=== PATIENT | male | born 1960 | race African-American/Black ===

== ENCOUNTER 2017-01-08 09:21 | Emergency (ER) ==
[2017-01-08 09:26] VITALS: BP 147/91; TEMP 97.9; BMI 28.0
--- NOTE | 2017-01-08 09:57 | ED.PDOC ---
General ED Provider: Dr. CINDY CAMPBELL Chief Complaint: Respiratory Complaint Stated Complaint: Burning pain in anterior lower central chest x 1 month. No nausea/vomitting, no weakness, no diaphoresis, no radiation of pain. Time Seen by Physician: 09:50 Mode of Arrival: Walk-In Information Source: Patient Exam Limitations: No limitations Primary Care Provider: ANGELA LUGO Nursing and Triage Documentation Reviewed and Agree: Yes GI Complaint Exam - Abdominal Pain Complaint/Exam Onset: Gradual Duration: 1 month Symptoms Are: Still present Timing: Intermittent Initial Severity: Mild Current Severity: Moderate Location of Pain: Discrete (lower central anterior chest) Character: Reports: Burning Aggravating: Reports: None Alleviating: Reports: Spontaneous resolution AAA Risk Factors: Reports: Smoking (smokes approx 04/25 PPD), Hypertension Cardiac Risk Factors: Reports: DM, Hypertension, Smoking Testicular Torsion Risk Factors: Reports: None Surgical Obstruction Risk Factors: Reports: None Related Surgical History: Reports: None Abdominal Findings: Present: None Differential Diagnoses: AMI, Gastroenteritis, Other (reflux esophagitis) Quality Indicators for AMI: EKG in 10min. Quality Indicators for Cardiac Chest Pain: EKG in 10min. Quality Indicator For Non-Traumatic Chest Pain/Syncope: EKG Performed Review of Systems - Review Of Systems Constitutional: Reports: No symptoms Eyes: Reports: No symptoms Ears, Nose, Mouth, Throat: Reports: No symptoms Respiratory: Reports: No symptoms Cardiac: Reports: Chest pain GI: Reports: No symptoms : Reports: No symptoms Musculoskeletal: Reports: No symptoms Skin: Reports: No symptoms Neurological: Reports: No symptoms All Other Systems: Reviewed and Negative Past Medical History - Past Medical History Previously Healthy: Yes Endocrine: Reports: None Cardiovascular: Reports: Hypertension Respiratory: Reports: None Hematological: Reports: None Gastrointestinal: Reports: None Genitourinary: Reports: CKD Neuro/Psych: Reports: Anxiety, Depression Musculoskeletal: Reports: Other Cancer: Reports: Other (renal cell) - Surgical History General Surgical History: Reports: Other (kidney cancer most of right kidney was removed.) - Family History Family History: Reports: Unknown - Social History Smoking Status: Current every day smoker, Light tobacco smoker (/ PPD) Hx Substance Use: Yes (marijuana) Alcohol Screening: Occasionally Lives: Alone - Immunizations Tetanus Shot up to Date: No Influenza Vaccine within 12 Months: No Pneumococcal Vaccine up to Date: No Physical Exam - Physical Exam Appearance: Well-appearing, No pain distress, Well-nourished Ill-appearing: None Pain Distress: None ENT: Ears normal, Nose normal, Oropharynx normal Neck: Supple Respiratory: Airway patent, Breath sounds clear, Breath sounds equal, Respirations nonlabored Cardiovascular: RRR, Pulses normal, No rub, No murmur GI/: Soft, Nontender, No masses, Bowel sounds normal, No Organomegaly Musculoskeletal: Normal strength, ROM intact, No edema, No calf tenderness Skin: Warm, Dry, Normal color Neurological: Sensation intact, Motor intact, Reflexes intact, Cranial nerves intact, Alert, Oriented Psychiatric: Affect appropriate, Mood appropriate Interpretation - Radiology Interpretation Radiology Interpretation By: Radiologist Radiology Results: Negative Exam Interpreted: CXR Xray Comments: WNL - EKG Interpretation Time of EKG #1: 10:06 Rate: Normal Rhythm: Sinus Ectopy: None [place]: NL ST Segment: Normal Interpretation: WNL Re-Evaluation - Re-Evaluation Time of Re-Evaluation: 11:58 Status: Improved Vital Signs Stable: Yes Pain Level: 2/10 Appearance: NAD Lungs: Clear Skin: Warm and Dry Neuro: Alert and Oriented X3 CV: RRR Additional Comments: chest pain eased off a lot after GI cocktail, now slowly coming back Critical Care Note - Critical Care Note Total Time (mins): 0 Course - Course Hematology/Chemistry: 01/08/17 10:16 01/08/17 10:16 Orders, Labs, Meds: Lab Review 01/08/17 01/08/17 01/08/17 10:16 10:16 11:05 WBC 11.46 H RBC 6.45 H Hgb 14.1 Hct 43.4 MCV 67.3 L MCH 21.9 L MCHC 32.5 RDW Coeff of Priscilla 18.0 H Plt Count 359 Immature Gran % (Auto) 0.3 Neut % (Auto) 68.7 Lymph % (Auto) 22.9 [place] % (Auto) 7.2 Eos % (Auto) 0.7 Baso % (Auto) 0.2 Immature Gran # (Auto) 0.0 Neut # 7.9 H Lymph # 2.6 [place] # 0.8 Eos # 0.1 Baso # 0.0 Hypochromasia 1+ Poikilocytosis 1+ Anisocytosis 1+ Microcytosis 2+ Sodium 143 Potassium 3.6 Chloride 108 H Carbon Dioxide 24 Anion Gap 14.6 BUN 12 Creatinine 1.34 H Estimated GFR (MDRD) 67.00 BUN/Creatinine Ratio 8.95 Glucose 84 Calcium 10.2 Total Bilirubin 0.34 AST 20 ALT 37 Alkaline Phosphatase 81 Total Creatine Kinase 228 CK-MB (CK-2) 1.1 CK-MB (CK-2) % 0.69636 Troponin I 0.0120 Total Protein 8.1 Albumin 4.4 Globulin 3.7 Albumin/Globulin Ratio 1.19 Amylase 101 Lipase 68 Urine Color Yellow Urine Clarity Clear Urine pH 6.0 Ur Specific [place] <=1.005 Urine Protein Negative Urine Glucose (UA) Negative Urine Ketones Negative Urine Blood Trace-lysed Urine Nitrite Negative Urine Bilirubin Negative Urine Urobilinogen 0.2 Ur Leukocyte Esterase Negative Urine Microscopic RBC 2-5 Urine Microscopic WBC 0-2 Ur Squamous Epith Cells Not present Urine Bacteria Trace Orders Category Date Time Status EKG-(ED ONLY) Stat CARDIO 01/08/17 10:02 Completed AMYLASE Stat LAB 01/08/17 10:16 Completed CBC W/ AUTO DIFF Stat LAB 01/08/17 10:16 Completed COMPREHENSIVE METABOLIC PANEL Stat LAB 01/08/17 10:16 Completed CREATINE KINASE Stat LAB 01/08/17 10:16 Completed LIPASE Stat LAB 01/08/17 10:16 Completed RBC MORPHOLOGY Stat LAB 01/08/17 10:16 Completed TROPONIN I Stat LAB 01/08/17 10:16 Completed URINALYSIS C & S IF INDICATED Stat LAB 01/08/17 11:05 Completed Mag-Al Plus//Lidocaine [Gi Cocktail] MEDS 01/08/17 10:05 Discontinued 30 ml PO ONCE STA CHEST, 2 VIEWS PA & LAT Stat RADS 01/08/17 10:04 Completed Medications Discontinued Medications Generic Name Dose Route Start Last Admin Trade Name Freq PRN Reason Stop Dose Admin Al Hydroxide/Mg Hydroxide 30 ml 01/08/17 10:05 01/08/17 10:12 Gi Cocktail PO 01/08/17 10:06 30 ml ONCE STA Administration Vital Signs: Temp Pulse Resp BP Pulse Ox 01/08/17 09:22 97.9 F 83 20 147/91 H 97 Departure - Departure Time of Disposition: 11:59 Disposition: HOME SELF-CARE Discharge Problem: Reflux esophagitis Instructions: Gastroesophageal Reflux Disease (ED) Condition: Good Pt referred to PMD for follow-up: No (if no better in 3 days, follwo up with doctor) Prescriptions: Omeprazole [Prilosec] 20 mg PO DAILY #30 capsule. Allergies/Adverse Reactions: Allergies Penicillins Adverse Reaction (Verified 01/08/17 09:26) Home Medications: Ambulatory Orders Atorvastatin Calcium [Lipitor] 20 mg PO DAILY 03/02/15 Metoprolol Tartrate [Lopressor] 25 mg PO DAILY 03/02/15 Metformin HCl 500 mg PO BID 01/08/17 Omeprazole [Prilosec] 20 mg PO DAILY #30 capsule. 01/08/17 Disposition Discussed With: Patient, Family
[2017-01-08] MEDS ORDERED: GI COCKTAIL PO STA (10:05)
[2017-01-08 10:20] LABS: BASOPHILS % (AUTO) 0.2 % (0.0-3.0); EOSINOPHILS # (AUTO) 0.1 K/ul (0.0-0.7); EOSINOPHILS % (AUTO) 0.7 % (0.0-7.0); HEMATOCRIT 43.4 % (42.0-52.0); HEMOGLOBIN 14.1 g/dl (14.0-18.0); IMMATURE GRANULOCYTE % (AUTO) 0.3 % (0.0-5.0); LYMPHOCYTES # (AUTO) 2.6 K/uL (0.60-3.4); LYMPHOCYTES % (AUTO) 22.9 (10.0-50.0); MEAN CORPUSCULAR HEMOGLOBIN 21.9 pg (27.0-31.0); MEAN CORPUSCULAR HGB CONC 32.5 (31.8-35.4); MEAN CORPUSCULAR VOLUME 67.3 fl (80.0-94.0); MONOCYTES # (AUTO) 0.8 K/uL (0.4-2.0); MONOCYTES % (AUTO) 7.2 (0-10); NEUTROPHILS # (AUTO) 7.9 K/ul (2.0-6.9); NEUTROPHILS % (AUTO) 68.7; PLATELET COUNT 359 10^3/uL (140-440); RED BLOOD COUNT 6.45 10^6/ul (4.70-6.10); WHITE BLOOD COUNT 11.46 K/ul (4.2-10.2)
[2017-01-08 10:31] LABS: HYPOCHROMASIA 1+ (NOT PRESENT); POIKILOCYTOSIS 1+ (NOT PRESENT)
[2017-01-08 10:32] LABS: ANISOCYTOSIS 1+ (NOT PRESENT); MICROCYTOSIS 2+ (NOT PRESENT)
--- NOTE | 2017-01-08 10:33 | DI ---
EXAM: PA and lateral views of the chest HISTORY: Chest pain COMPARISON: 10/04/[address] 04/02/2016 FINDINGS: The cardiomediastinal silhouette is normal. There is no pneumothorax or pleural effusion. There is no consolidation, nodule or mass. Calcified left hilar lymph nodes are present. The osse ous structures are unremarkable. IMPRESSION: No acute cardiopulmonary process
[2017-01-08 10:57] LABS: ALBUMIN 4.4 g/dL (3.4-5.0); ALBUMIN/GLOBULIN RATIO 1.19; ANION GAP 14.6; BILIRUBIN,TOTAL 0.34 mg/dL (0.00-1.20); BUN/CREATININE RATIO 8.95; CALCIUM 10.2 mg/dL (8.2-10.2); CREATININE 1.34 mg/dL (0.60-1.10); POTASSIUM 3.6 mmol/L (3.5-5.1); TOTAL PROTEIN 8.1 g/dL (6.4-8.2); TROPONIN I 0.012 ng/ml (0.0000-0.4000)
[2017-01-08 10:59] LABS: CREATINE KINASE MB 1.1 ng/ml (0.0-3.6)
[2017-01-08 11:46] LABS: BILIRUBIN,URINE Negative (NEGATIVE); KETONES,URINE Negative (NEGATIVE); LEUKOCYTE ESTERASE ,URINE Negative (NEGATIVE); NITRITE,URINE Negative (NEGATIVE); PROTEIN,URINE Negative (NEGATIVE); URINE, BLOOD Trace-lysed (NEGATIVE)
[2017-01-08 11:50] LABS: ADD URINE MICROSCOPIC YES
[2017-01-08 12:02] LABS: BACTERIA,URINE TRACE (NOT PRESENT)
== END 2017-01-08 12:19 | disposition home or self-care (01) ==
LOC: ED 09:21
DX: K21.9 Gastro-esophageal reflux disease without esophagitis (principal); E11.9 Type 2 diabetes mellitus without complications; I10 Essential (primary) hypertension; R07.9 Chest pain, unspecified; N18.9 Chronic kidney disease, unspecified; Z79.899 Other long term (current) drug therapy; F17.210 Nicotine dependence, cigarettes, uncomplicated; Z85.528 Personal history of other malignant neoplasm of kidney
CPT/HCPCS: 36415; 80053; 81001; 82150; 82550; 82553; 83690; 84484; 85008; 85025; 93005; 93010; 99283